=== PATIENT | female | born 1980 | race Caucasian/White ===

== ENCOUNTER 2017-06-20 16:35 | Emergency (ER) | payer BC ==
[2017-06-20 16:48] VITALS: BP 144/86; PULSE 93; TEMP 99.4; BMI 22.8
--- NOTE | 2017-06-20 17:49 | PDOC ---
History of Present Illness - General History Source: Patient Exam Limitations: No Limitations - History of Present Illness Initial Comments: 06/20/17 17:52 The patient is a 37-year-old female, with a significant past medical history of hodgkin's lymphoma, who presents to the ED with 3 weeks of left upper back pain (near scapula) and shortness of breath. Pt experiences the pain when she is resting and not when she exerts herself. She became concerned since her pain became more constant within the last week. Pt also reports that she has been feeling short of breath when she is working out. She denies any recent changes in her workout routine which consists of mostly cardio and linda. Pt reports that she has been taking naproxen for pain and has tried acupuncture with minimal relief of her symptoms. She reports that she visits her Oncologist once a year; last visit was 2 months ago and her blood work appeared to be normal. She denies any fever, chills, nausea, vomiting, diarrhea, or abdominal pain. She denies any chest pain. <Marika Guaman - Last Filed: 06/20/17 17:52> <Annelise Manning - Last Filed: 06/20/17 19:02> - General Chief Complaint: Pain Stated Complaint: LEFT UPPER BACK TINGELING Time Seen by Provider: 06/20/17 17:12 Past History <Marika Guaman - Last Filed: 06/20/17 17:52> - Past Medical History Cancer: Yes (hodgkins lymphoma) COPD: No Hypercholesterolemia: Yes - Immunization History Td Vaccination: No - Suicide/Smoking/Psychosocial Hx Smoking Status: No Smoking History: Never smoked Have you smoked in the past 12 months: No Number of Cigarettes Smoked Daily: 0 Information on smoking cessation initiated: No Hx Alcohol Use: No Drug/Substance Use Hx: No Substance Use Type: None <Annelise Manning - Last Filed: 06/20/17 19:02> - Past Medical History Allergies/Adverse Reactions: Allergies Allergy/AdvReac Type Severity Reaction Status Date / Time No Known Allergies Allergy Verified 06/20/17 16:36 Home Medications: Ambulatory Orders Simvastatin 20 mg PO DAILY 04/15/16 Ibuprofen [Motrin -] 600 mg PO TID #90 tablet 06/20/17 Review of Systems - Review of Systems Able to Perform ROS?: Yes Comments:: 06/20/17 17:52 GENERAL/CONSTITUTIONAL: No fever or chills. No weakness. HEAD, EYES, EARS, NOSE AND THROAT: No change in vision. No ear pain or discharge. No sore throat. CARDIOVASCULAR: No chest pain or shortness of breath. RESPIRATORY: (+)Shortness of breath. No cough, wheezing, or hemoptysis. GASTROINTESTINAL: No nausea, vomiting, diarrhea or constipation. GENITOURINARY: No dysuria, frequency, or change in urination. MUSCULOSKELETAL: (+)Left upper back pain. No joint swelling or pain. No neck pain. SKIN: No rash NEUROLOGIC: No headache, vertigo, loss of consciousness, or change in strength/ sensation. ENDOCRINE: No increased thirst. No abnormal weight change. HEMATOLOGIC/LYMPHATIC: No anemia, easy bleeding, or history of blood clots. ALLERGIC/IMMUNOLOGIC: No hives or skin allergy. <Marika Guaman - Last Filed: 06/20/17 17:52> *Physical Exam - Vital Signs Last Vital Signs Temp Pulse Resp BP Pulse Ox 99.4 F 93 H 20 144/86 97 06/20/17 16:36 06/20/17 16:36 06/20/17 16:36 06/20/17 16:36 06/20/17 16:36 - Physical Exam Comments: 06/20/17 17:54 GENERAL: Awake, alert, and fully oriented, in no acute distress HEAD: No signs of trauma EYES: PERRLA, EOMI, sclera anicteric, conjunctiva clear ENT: Auricles normal inspection, nares patent, oropharynx clear without exudates. Moist mucosa. NECK: Normal ROM, supple, no lymphadenopathy, JVD, or masses LUNGS: Breath sounds equal, clear to auscultation bilaterally. No wheezes, and no crackles HEART: Regular rate and rhythm, normal S1 and S2, no murmurs, rubs or gallops ABDOMEN: Soft, nontender, normoactive bowel sounds. No guarding, no rebound. No masses MSK:(+)Tenderness over left scapula. No midline spine tenderness. EXTREMITIES: Normal range of motion, no edema. No clubbing or cyanosis. No cords, erythema, or tenderness NEUROLOGICAL: Alert and oriented x 3. Moves all extremities. Face is symmetric. 5/5 strength in all extremities SKIN: Warm, Dry, normal turgor, no rashes or lesions noted. <Marika Guaman - Last Filed: 06/20/17 17:52> - Vital Signs Last Vital Signs Temp Pulse Resp BP Pulse Ox 99.4 F 93 H 20 144/86 97 06/20/17 16:36 06/20/17 16:36 06/20/17 16:36 06/20/17 16:36 06/20/17 16:36 <Annelise Manning - Last Filed: 06/20/17 19:02> ED Treatment Course - LABORATORY CBC & Chemistry Diagram: 06/20/17 17:31 06/20/17 17:31 - ADDITIONAL ORDERS Additional order review: Laboratory Results 06/20/17 17:31 Urine HCG, Qual Negative <Marika Guaman - Last Filed: 06/20/17 17:52> - LABORATORY CBC & Chemistry Diagram: 06/20/17 17:31 06/20/17 17:31 - ADDITIONAL ORDERS Additional order review: Laboratory Results 06/20/17 17:31 Urine HCG, Qual Negative - RADIOLOGY Radiology Studies Ordered: Category Date Time Status CHEST PA & LAT [RAD] Stat Radiology 06/20/17 17:20 Ordered <Annelise Manning - Last Filed: 06/20/17 19:02> Medical Decision Making - Medical Decision Making 06/20/17 17:46 37-year-old female with no past history of non- Hodgkin's lymphoma here today complaining of left upper back pain and scapular pain. Patient states that she has had this pain for 3 weeks that was related to stress tried acupuncture and other things with minimal relief. Does occasionally take naproxen. Also states that recently she's been feeling short of breath during exercise class states that this activity is normal for her denies any chest pain no history of blood clots in legs or lungs no leg swelling had a friend who recently had an ME concerns she can be it checked out. Patient has seen her oncologist a few months prior and at that time everything was cleared On exam she is awake alert no acute distress lungs are clear bilaterally. No chest wall tenderness. Does have left posterior scapular muscle spasm and tenderness. Abdomen is soft and nontender. Extremities are warm well perfused no edema. No calf tenderness. Alert and oriented 3 To differential anemia, exercise intolerance, infection muscle spasm due to patient's age and absence of family heart disease ACS is unlikely. We will check a troponin EKG chest x-ray CBC CMP if all is negative plan to DC with outpatient follow-up for possible cardiology referral. <Annelise Manning - Last Filed: 06/20/17 19:02> *DC/Admit/Observation/Transfer - Attestations Scribe Attestion: 06/20/17 17:55 Documentation prepared by Marika Guaman, acting as medical reception for Annelise Manning MD. <Marika Guaman - Last Filed: 06/20/17 17:52> <Annelise Manning - Last Filed: 06/20/17 19:02> Diagnosis at time of Disposition: Muscle spasm, Strain of muscle and tendon of back wall of thorax, initial encounter - Discharge Dispostion Disposition: HOME Condition at time of disposition: Improved - Prescriptions Prescriptions: Ibuprofen [Motrin -] 600 mg PO TID #90 tablet - Referrals Referrals: Shelton Lopez MD [Staff Physician] - - Patient Instructions Printed Discharge Instructions: Back Pain (Alternative Therapy) Additional Instructions: your tests today are negative for any acute disease including a negative blood test for heart attack, a normal chest x-ray. And a normal blood cell count. And follow-up with a software sales representative for any concerns for persistent shortness of breath experienced during exercise discuss an outpatient echo. Chest x-ray is negative for any infection. Please follow-up with your regular doctor to schedule within 1-2 weeks he can also follow-up with Dr. lopez, a software sales representative, see referral information for phone number to schedule. Return for any problems or concerns
[2017-06-20 17:50] LABS: BASOPHIL 0.4 % (0-2.0); EOSINOPHIL 1.1 % (0-4.5); MCH 27.4 pg (25.7-33.7); MCHC 33.1 g/dl (32.0-36.0); MEAN CELL VOLUME 82.8 fl (80-96); MEAN PLT VOLUME 8.2 fl (7.5-11.1); NEUTROPHILS 76.4 % (42.8-82.8); PLATELET COUNT 366 K/MM3 (134-434); RDW 13.6 % (11.6-15.6); WHITE BLOOD COUNT 11.4 K/mm3 (4.0-10.8)
[2017-06-20 18:01] LABS: ALBUMIN 4.1 g/dl (3.5-5.0); ALK PHOS 75 U/L (32-92); ANION GAP 6 (8-16); BILIRUBIN,TOTAL 0.3 mg/dl (0.2-1.0); CO2 28 mmol/L (22-28); CREATININE 0.7 mg/dl (0.6-1.3); GLUCOSE,RANDOM 107 mg/dl (74-106); SGOT/AST 26 U/L (10-42); SGPT/ALT 20 U/L (10-40); TOT PROT 7.6 g/dl (6.4-8.3)
--- NOTE | 2017-06-21 20:22 | EKG ---
Test Reason : Blood Pressure : / mmHG Vent. Rate : 095 BPM Atrial Rate : 095 BPM P-R Int : 128 ms QRS Dur : 074 ms QT Int : 346 ms P-R-T Axes : 045 035 007 degrees QTc Int : 434 ms POOR DATA QUALITY, INTERPRETATION MAY BE ADVERSELY AFFECTED NORMAL SINUS RHYTHM NONSPECIFIC T WAVE ABNORMALITY WHEN COMPARED WITH ECG OF 13-MAR-2008 19:38, NO SIGNIFICANT CHANGE WAS FOUND Confirmed by NIURKA HACKETT, NOAM ([id number]) on 06/21/2017 8:22:41 PM Referred By: MD WHITLEY Confirmed By:NOAM BAH MD
== END 2017-06-20 19:15 | disposition home or self-care (01) ==
LOC: FER 16:35
DX: Z85.72 Personal history of non-Hodgkin lymphomas (principal)
CPT/HCPCS: 36415; 71020-TC; 80053; 83880; 84484; 84703; 85025; 93005; 99283-25

== ENCOUNTER 2018-06-15 21:45 | Emergency (ER) | payer BC ==
[2018-06-15 21:53] VITALS: BP 135/76; PULSE 104; TEMP 97.7; BMI 30.2
[2018-06-15] MEDS ORDERED: SODIUM CHLORIDE 0.9% 1000 ML INFUS.BAG IV ONE (21:54)
[2018-06-15] MEDS ORDERED: METOCLOPRAMIDE HCL INJECTION 10 MG/2 ML VIAL IVPB ONE (21:54)
[2018-06-15] MEDS ORDERED: METOCLOPRAMIDE HCL INJECTION 10 MG/2 ML VIAL ONE (21:57)
[2018-06-15 22:15] LABS: URINE APPEARANCE Clear; URINE BILIRUBIN Negative (NEGATIVE); URINE COLOR Yellow; URINE GLUCOSE (UA) Negative (NEGATIVE); URINE KETONE Negative (NEGATIVE); URINE LEUK ESTERASE Negative (NEGATIVE); URINE NITRITE Negative (NEGATIVE); URINE PROTEIN Negative (NEGATIVE); URINE UROBILINOGEN 0.2 (0.2-1.0)
[2018-06-15 22:21] LABS: HCG,QUALITATIVE URINE Negative
[2018-06-15 22:22] LABS: BASO % 0.5 % (0-2.0); EOS % 2.8 % (0-4.5); HEMATOCRIT 32.4 % (32.4-45.2); HEMOGLOBIN 10.5 GM/dl (10.7-15.3); LYMPH % 27.2 % (8-40); MCH 25.3 pg (25.7-33.7); MCHC 32.4 g/dl (32.0-36.0); MEAN CELL VOLUME 78.2 fl (80-96); MEAN PLT VOLUME 7.8 fl (7.5-11.1); NEUT % 62.5 % (42.8-82.8); PLATELET COUNT 323 K/MM3 (134-434); RBC 4.15 M/mm3 (3.60-5.2); RDW 14.9 % (11.6-15.6); WHITE BLOOD COUNT 7.4 K/mm3 (4.0-10.8)
[2018-06-15 22:37] LABS: ALBUMIN 3.5 g/dl (3.5-5.0); ALK PHOS 71 U/L (32-92); ANION GAP 4 MMOL/L (8-16); BILIRUBIN,TOTAL 0.4 mg/dl (0.2-1.0); BLOOD UREA NITROGEN 10 mg/dl (7-18); CALCIUM 9.2 mg/dl (8.4-10.2); CHLORIDE 106 mmol/L (98-107); CO2 25 mmol/L (22-28); CREATININE 0.8 mg/dl (0.6-1.3); GLUCOSE,RANDOM 127 mg/dl (74-106); POTASSIUM 3.6 mmol/L (3.5-5.1); SGOT/AST 23 U/L (10-42); SGPT/ALT 15 U/L (10-40); SODIUM 135 mmol/L (136-145); TOT PROT 7.3 g/dl (6.4-8.3)
--- NOTE | 2018-06-15 23:51 | PDOC ---
History of Present Illness - General Chief Complaint: Pain, Acute Stated Complaint: ABD PAIN Time Seen by Provider: 06/15/18 21:47 Past History - Past Medical History Allergies/Adverse Reactions: Allergies Allergy/AdvReac Type Severity Reaction Status Date / Time No Known Allergies Allergy Verified 06/20/17 16:36 Home Medications: Ambulatory Orders Simvastatin 20 mg PO DAILY 04/15/16 Ibuprofen [Motrin -] 600 mg PO TID PRN 06/15/18 Cancer: Yes (hodgkins lymphoma) COPD: No Disorders: Yes (FIBROIDS) Hypercholesterolemia: Yes - Immunization History Td Vaccination: No - Suicide/Smoking/Psychosocial Hx Smoking Status: No Smoking History: Never smoked Have you smoked in the past 12 months: No Number of Cigarettes Smoked Daily: 0 Hx Alcohol Use: No Drug/Substance Use Hx: No Substance Use Type: None *Physical Exam - Vital Signs Last Vital Signs Temp Pulse Resp BP Pulse Ox 97.7 F 104 H 18 135/76 99 06/15/18 21:47 06/15/18 21:47 06/15/18 21:47 06/15/18 21:47 06/15/18 21:47 Moderate Sedation - Procedure Monitoring Vital Signs: Procedure Monitoring Vital Signs Temperature 97.7 F 06/15/18 21:47 Pulse Rate 104 H 06/15/18 21:47 Respiratory Rate 18 06/15/18 21:47 Blood Pressure 135/76 06/15/18 21:47 O2 Sat by Pulse Oximetry (%) 99 06/15/18 21:47 ED Treatment Course - LABORATORY CBC & Chemistry Diagram: 06/15/18 22:09 06/15/18 22:09 - ADDITIONAL ORDERS Additional order review: Laboratory Results 06/15/18 06/15/18 22:09 22:09 Sodium 135 L Potassium 3.6 Chloride 106 Carbon Dioxide 25 Anion Gap 4 L BUN 10 Creatinine 0.8 Creat Clearance w eGFR > 60 Random Glucose 127 H Calcium 9.2 Total Bilirubin 0.4 AST 23 ALT 15 D Alkaline Phosphatase 71 Total Protein 7.3 Albumin 3.5 Urine Color Yellow Urine Appearance Clear Urine pH 7.0 Ur Specific [place] 1.010 Urine Protein Negative Urine Glucose (UA) Negative Urine Ketones Negative Urine Blood Negative Urine Nitrite Negative Urine Bilirubin Negative Urine Urobilinogen 0.2 Ur Leukocyte Esterase Negative Urine HCG, Qual Negative 06/15/18 22:09 RBC 4.15 MCV 78.2 L MCHC 32.4 RDW 14.9 MPV 7.8 Neutrophils % 62.5 Lymphocytes % 27.2 Monocytes % 7.0 Eosinophils % 2.8 Basophils % 0.5 - RADIOLOGY Radiology Studies Ordered: Category Date Time Status ABDOMEN & PELVIS CT WITH CONTR [CT] Stat CT Scan 06/15/18 23:00 Ordered - Medications Given in the ED: ED Medications Discontinued Medications Generic Name Dose Route Start Last Admin Trade Name Traci PRN Reason Stop Dose Admin Diphenhydramine HCl 25 mg 06/15/18 21:54 06/15/18 22:08 Benadryl Injection - IVPB 06/15/18 21:55 25 mg ONCE ONE Administration Metoclopramide HCl 10 mg 06/15/18 21:54 06/15/18 22:09 Reglan Injection - IVPB 06/15/18 21:55 10 mg ONCE ONE Administration Sodium Chloride 1,000 ml 06/15/18 21:54 06/15/18 22:08 Normal Saline - IV 06/15/18 21:55 1,000 ml ONCE ONE Administration Medical Decision Making - Medical Decision Making 06/15/18 23:47 38 years old chronic abdominal issues one-week history of abdominal discomfort now with diarrhea worsening pain pain is left lower quadrant mild left-sided discomfort on pelvic pain is mostly in her abdomen Plan is labs CT observe and reassess Reevaluation 1147 patient feels better does not want to wait for CAT scan. She has no fever she has no white count. She will sign out of the hospital AGAINST MEDICAL ADVICE she understands risks and benefits she is confident has insight into disease process she'll return to ED for any fever severe worsening pain or for any concerns otherwise she'll follow-up with her doctor on Monday Find his, need for follow-up and strict return instructions discussed with patient. *DC/Admit/Observation/Transfer Diagnosis at time of Disposition: Abdominal pain Qualifiers: Abdominal location: left lower quadrant Qualified Code(s): R10.32 - Left lower quadrant pain - Discharge Dispostion Disposition: HOME Condition at time of disposition: Stable Decision to Admit order: No - Referrals Referrals: Jesse Shelton MD [Staff Physician] - - Patient Instructions Printed Discharge Instructions: DI for Abdominal Pain-Adult Additional Instructions: Return to ED for any severe worsening abdominal pain fever or for any concerns. Follow-up with your primary care provider valve machine operator on Monday. - Post Discharge Activity
== END 2018-06-16 00:05 | disposition home or self-care (01) ==
LOC: FER 21:45
PROC: 3E0337Z Introduction of Electrolytic and Water Balance Substance into Peripheral Vein, Percutaneous Approach (ICD-10-PCS; principal; 2018-06-15)
PROC: 3E033GC Introduction of Other Therapeutic Substance into Peripheral Vein, Percutaneous Approach (ICD-10-PCS; 2018-06-15)
DX: R10.32 Left lower quadrant pain (principal); C81.90 Hodgkin lymphoma, unspecified, unspecified site; E78.00 Pure hypercholesterolemia, unspecified
CPT/HCPCS: 36415; 80053; 81003; 84703; 85025; 99283-25; J7030

== ENCOUNTER 2021-11-03 06:51 | Day surgery (SDC) | payer BC ==
[2021-11-03] MEDS ORDERED: FERRIC CARBOXYMALTOSE 750 MG in SODIUM CHLORIDE 250 ML IVPB ONE (10:00)
[2021-11-03 12:32] VITALS: BP 124/84; PULSE 91; TEMP 98.5
== END 2021-11-03 12:20 | disposition home or self-care (01) ==
LOC: JONCCHEMO 06:51
PROVIDERS: ATTEND Internal Medicine Hematology & Oncology
PROC: 3E033GC Introduction of Other Therapeutic Substance into Peripheral Vein, Percutaneous Approach (ICD-10-PCS; principal; 2021-11-03)
DX: E61.1 Iron deficiency (principal)
CPT/HCPCS: 84703; 96365; J1439

== ENCOUNTER 2021-11-11 07:02 | Day surgery (SDC) | payer BC ==
[2021-11-11] MEDS ORDERED: FERRIC CARBOXYMALTOSE 750 MG in SODIUM CHLORIDE 250 ML IVPB ONE (14:45)
[2021-11-11 15:47] VITALS: TEMP 98
[2021-11-11 15:53] VITALS: BP 113/71; PULSE 80
== END 2021-11-11 15:40 | disposition home or self-care (01) ==
LOC: JONCNONCHE 07:02
PROVIDERS: ATTEND Internal Medicine Hematology & Oncology
PROC: 3E033GC Introduction of Other Therapeutic Substance into Peripheral Vein, Percutaneous Approach (ICD-10-PCS; principal; 2021-11-11)
DX: D50.9 Iron deficiency anemia, unspecified (principal)
CPT/HCPCS: 96365; J1439

== ENCOUNTER 2022-12-23 04:19 | Day surgery (SDC) | payer BC ==
[2022-12-21 15:07] VITALS: BMI 31.1
[2022-12-23] MEDS ORDERED: ACETAMINOPHEN 500 MG TABLET (FP) PO PRN (08:55)
[2022-12-23] MEDS ORDERED: BUPIVACAINE HCL/PF 0.5% (5MG/ML) 10 ML VIAL IJ ONE (10:07)
[2022-12-23 13:51] VITALS: RESP 18
[2022-12-23 14:11] VITALS: BP 144/89; PULSE 61; TEMP 97.4
== END 2022-12-23 14:15 | disposition home or self-care (01) ==
LOC: JASU-SURG 04:19
PROVIDERS: ATTEND Pain Medicine Pain Medicine
PROC: 3E0T3BZ Introduction of Anesthetic Agent into Peripheral Nerves and Plexi, Percutaneous Approach (ICD-10-PCS; principal; 2022-12-23 13:45)
DX: M47.812 Spondylosis without myelopathy or radiculopathy, cervical region (principal)
CPT/HCPCS: 76000-TC-FY; 81025